=== PATIENT | female | born 1995 | race Caucasian/White ===

== ENCOUNTER 2016-10-15 13:51 | Emergency (ER) | payer BC, OTHER ==
[2016-10-15 13:58] VITALS: RESP 16; O2SAT 98
--- NOTE | 2016-10-15 14:16 | EDPHY ---
H & P Stated Complaint: ABD PAIN Time Seen by Provider: 10/15/16 14:07 HPI/ROS: CHIEF COMPLAINT: Abdominal pain HISTORY OF PRESENT ILLNESS: The patient is a 21 y/o female arriving from the [facility] complaining of intermittent lower abdominal pain, dizziness, and nausea for the last week. The pain is primarily located in the RLQ, but extends throughout the pelvis. The pain has been intermittent, without clear alleviating or aggravating factors. No associated symptoms. She had pain during the pelvic exam with her OBGYN today and they recommend treatment for PID due to cervical motion tenderness and adnexal tenderness, in addition to evaluation at the ED for other etiologies for her pain. GC/ Chlamydia cultures pending from that exam. She's had some vaginal spotting and last week she had white discharge. She takes oral hormonal control. She denies dysuria, fever, vomiting, and loss of appetite. No other pertinent medical history. LMP 10/05/16. REVIEW OF SYSTEMS: Constitutional: No fever, no chills Eyes: No visual changes ENT: No sore throat Respiratory: No cough, no shortness of breath Cardiac: No chest pain Gastrointestinal: see HPI Genitourinary: No hematuria, no dysuria Musculoskeletal: No leg pain or swelling Skin: No rash Neurological: No headache, no numbness, no weakness Psychiatric: No depression - Personal History LMP (Females 10-55): 22-28 Days Ago Current Tetanus Diphtheria and Acellular Pertussis (TDAP): Yes - Medical/Surgical History Other PMH: DENIES - Social History Smoking Status: Never smoked Additional Social History: Social alcohol use. Non smoker. OBGYN at [facility]. - Physical Exam Exam: General Appearance: Alert, no distress Eyes: Pupils equal and round, no conjunctival pallor or injection ENT, Mouth: Mucous membranes moist Neck: Normal inspection Respiratory: Lungs are clear to auscultation Cardiovascular: Regular rate and rhythm Gastrointestinal: Abdomen is soft, diffuse pelvic tenderness Neurological: A&O, nonfocal, normal gait Skin: Warm and dry, no rash Extremities: Nontender, no pedal edema Psychiatric: Mood and affect normal Constitutional: Initial Vital Signs Temperature (C) 36.9 C 10/15/16 13:56 Heart Rate 98 10/15/16 13:56 Respiratory Rate 16 10/15/16 13:56 Blood Pressure 117/75 10/15/16 13:56 O2 Sat (%) 98 10/15/16 13:56 O2 Delivery Mode Room Air Allergies/Adverse Reactions: No Known Allergies Allergy (Unverified 10/15/16 13:55) Home Medications: Medication Instructions Recorded Bcp 10/15/16 Medical Decision Making - Diagnostics Imaging: Discussed imaging studies w/ director call Radiologist ED Course/Re-evaluation: This is an otherwise healthy 21 y/o female who presents with a 1-week history of intermittent lower abdominal pain, nausea, and dizziness. She was evaluated by her OBGYN today and they recommended treatment for PID unless other cause of pain could be identified in the ED. She has diffuse pelvic tenderness on exam. Plan for IV, labs, UA, and pelvic US. Pelvic ultrasound read by Dr. Bear is normal. Right lower quadrant ultrasound : The appendix is not visualized. Ultrasound results discussed with the patient. The possibility of appendicitis was discussed with the patient. At this point, she does not wish to proceed with CT scan to rule out appendicitis. I think this is a reasonable plan, given that she has had prolonged intermittent discomfort and has a normal white blood cell count and no fever. I will treat her for PID, pending cultures. Rocephin 250 mg IM and Zithromax 1 g orally given. Abdominal pain precautions given. Differential Diagnosis: Differential diagnosis includes though it is not limited to ectopic , ovarian cyst, ovarian torsion, PID, UTI, appendicitis. - Data Points Laboratory Results: Laboratory Results 10/15/16 14:30 Medications Given: Discontinued Medications Azithromycin (Zithromax) 1,000 mg PO EDNOW ONE PRN Reason: Protocol Stop: 10/15/16 15:26 Last Admin: 10/15/16 15:35 Dose: 1,000 mg Ceftriaxone Sodium (Rocephin Im Syringe) 250 mg IM ONCE ONE PRN Reason: Protocol Stop: 10/15/16 15:26 Last Admin: 10/15/16 16:33 Dose: 250 mg Ondansetron HCl (Zofran Odt 4 Mg Prepack#2) 1 btl TAKEHOME EDNOW ONE Stop: 10/15/16 15:36 Last Admin: 10/15/16 16:02 Dose: 1 btl Departure - Departure Disposition: Home, Routine, Self-Care Clinical Impression: Pelvic inflammatory disease Condition: Good Instructions: Ondansetron (By mouth), Pelvic Inflammatory Disease (ED) Additional Instructions: Follow up with your OBGYN as needed for continued symptoms. Return to the ED for severe pain, vomiting, uncontrollable fever, or other worsening of condition. Take Zofran 1 tablet sublingually every 6 hours as needed for nausea. Referrals: [facility] [Provider Group] - As per Instructions Report Scribed for: Lisha France Report Scribed by: Aleah Bravo Date of Report: 10/15/16 Time of Report: 14:16 Physician Review and Approval Statement: 10/15/16 14:16 Portions of this note were transcribed by a biomedical service engineer. I personally performed a history, physical exam, medical decision making, and confirmed accuracy of information the transcribed note.
[2016-10-15 14:37] LABS: % IMMATURE GRANULYOCYTES 0.4 % (0.0-1.1); ABSOLUTE IMMATURE GRANULOCYTES 0.04 10^3/uL (0.00-0.10); ADD DIFF? NO; ADD MORPH? NO; ADD SCAN? NO; ATYPICAL LYMPHOCYTE FLAG 0 (0-99); FRAGMENT RBC FLAG 0 (0-99); HEMATOCRIT 43.1 % (38.0-47.0); HEMOGLOBIN 14.3 g/dL (12.6-16.3); LEFT SHIFT FLG 0 (0-99); LIPEMIA HEMOLYSIS FLAG 80 (0-99); MEAN CELL HEMOGLOBIN 28.7 pg (27.9-34.1); MEAN CELL HEMOGLOBIN CONCENTR. 33.2 g/dL (32.4-36.7); MEAN CELL VOLUME 86.5 fL (81.5-99.8); MEAN PLATELET VOLUME 9.8 fL (8.7-11.7); PLATELET CLUMPS FLAG 0 (0-99); PLATELET COUNT 259 10^3/uL (150-400); RED BLOOD CELL COUNT 4.98 10^6/uL (4.18-5.33); RED CELL DISTRIBUTION WIDTH 13.6 % (11.5-15.2)
[2016-10-15 14:42] LABS: COLOR YELLOW; LEUKOCYTE ESTERASE,URINE NEGATIVE (NEGATIVE); NITRITE,URINE NEGATIVE (NEGATIVE)
[2016-10-15 14:50] LABS: MUCUS 1+ /lpf (NONE-1+)
[2016-10-15] MEDS: AZITHROMYCIN 250 MG TAB PO ONE (15:35)
[2016-10-15 16:02] VITALS: BP 107/64; PULSE 84; TEMP 98.6
[2016-10-15] MEDS: ONDANSETRON 4MG PREPACK#2 BTL TAKEHOME ONE (16:02)
[2016-10-15] MEDS: CEFTRIAXONE IM 350 MG/ML SYRINGE IM ONE (16:33)
== END 2016-10-15 16:35 | disposition home or self-care (01) ==
DX: N73.9 Female pelvic inflammatory disease, unspecified (principal)
CPT/HCPCS: J0696